=== PATIENT | male | born 1975 | race Caucasian/White ===

== ENCOUNTER 2022-10-08 12:36 | Emergency (ER) | payer BC, OTHER ==
[~2022-10-08] VITALS: Ht 170.2 cm; Wt 86.2 kg
--- NOTE | 2022-10-08 13:24 | NUR ---
PT A/O x4 C/O KNEE PAIN FROM [employer] CLAIMS 08/07 PAIN SHOOT TO LOWER BACK. NO ACUTE SIGNS OF DISTRESS. WAITING FOR MD.
--- NOTE | 2022-10-08 13:30 | NUR ---
pt seen by md at bedside
[2022-10-08] MEDS ORDERED: CARI350T PO (13:42)
--- NOTE | 2022-10-08 13:59 | NUR ---
Patient discharged to home in stable condition. Written and verbal after care instructions given. Patient verbalizes understanding of instruction.
[2022-10-08 14:00] VITALS: BP 111/62
== END 2022-10-08 14:01 | disposition home or self-care (01) ==
LOC: ER 12:44
DX: M25.562 Pain in left knee (principal)